=== PATIENT | male | born 1965 | race Caucasian/White ===

== ENCOUNTER → 2019-07-28 11:15 | Outpatient (CLI) | payer OTHER, SELFPAY ==
--- NOTE | 2019-07-28 14:18 | RAD_ITS ---
STUDY: X-RAY - CERVICAL SPINE REASON FOR EXAM: Male, 54 years old. CERVICALGIA, LEFT SIDE NECK PAIN W/ RADIATION TOWARD LUE. NKI TECHNIQUE: 5 view(s) of the cervical spine were obtained. COMPARISON: None FINDINGS: Normal anterior atlantoaxial articulation. Normal odontoid process. Normal cervical lordosis. There is endplate spondylosis of C3-C7. There is a 3.6 mm anterior subluxation of C4 relative to C3, and 2.8 mm anterior subluxation of C4 relative to C5. There is narrowing of the C3-4 and C5-6 disc spaces. There is multi-level osseous foraminal stenosis. The soft tissue structures are unremarkable. RAD/Cerv Spine 4 or 5 Views IMPRESSION: Cervical degenerative changes as detailed above. 3.6 mm anterior subluxation of C4 relative to C3, and 2.8 mm anterior subluxation of C4 relative to C5. This is most likely degenerative in nature. Electronically Signed: Mono Yates MD at 16:49 EST , Service support ,
--- NOTE | 2019-07-28 14:38 | NEURO ---
NCS and/or EMG Patient Report Ordering Doctor: Royer Rhodes DATE OF SERVICE: 07/28/19 Florencio Dillard is a 54-year-old male presents for electrodiagnostic testing of the left upper limb. He reports numbness and tingling as well as weakness in the left hand. Electrodiagnostic findings: Left median motor nerve demonstrates prolonged distal latency with normal amplitude and reduced conduction velocity. Prolonged left median sensory latency at the wrist. Prolonged left median palmar latency. Normal ulnar and radial sensory responses. Normal ulnar motor response, including conduction across the elbow. Normal median ulnar F wave. On needle EMG, all muscles tested in the left upper limb showed no evidence of denervation with normal motor unit action potentials. Electrodiagnostic impression: This is an abnormal study in the left upper limb. 1. Electrodiagnostic findings demonstrate left-sided median mononeuropathy. This is consistent with a mild left carpal tunnel syndrome. 2. No electrodiagnostic evidence for cervical radiculopathy. If there are any further questions, please do not hesitate contact me.
== END ==
DX: G56.02 Carpal tunnel syndrome, left upper limb (principal); M54.2 Cervicalgia
CPT/HCPCS: 72050; 95886; 95910

== ENCOUNTER → 2019-11-01 13:53 | Outpatient (CLI) | payer BC, SELFPAY ==
--- NOTE | 2019-11-01 14:08 | EKG12_ITS ---
Test Reason : PRE-OP Blood Pressure : / mmHG Vent. Rate : 072 BPM Atrial Rate : 072 BPM P-R Int : 140 ms QRS Dur : 126 ms QT Int : 392 ms P-R-T Axes : 060 023 057 degrees QTc Int : 429 ms Sinus rhythm with marked sinus arrhythmia Non-specific intra-ventricular conduction block Abnormal ECG Confirmed by SANTINO NAPOLES, TL ([id number]), graphic editor BAKARI SAEZ ([id number] on 11/04/2019 10:34:21 AM Referred By: Trent Hanley Confirmed By:TL DE MD
[2019-11-01 15:08] LABS: Mean Corp Hgb Conc 34.1 g/dL (32-36); Mean Corpuscular Hgb 32.5 pg (27.0-32.0); Mean Corpuscular Volume 95.2 fL (80-94); Platelet Count 387 K/mm3 (150-450); RBC Distribution Width CV 12.8 % (11.6-14.6); RBC Distribution Width SD 44.1 fl (35.1-43.9); Red Blood Count 4.62 M/mm3 (4.6-6.2); White Blood Count 9.8 K/mm3 (4.4-11.0)
[2019-11-01 15:59] LABS: Anion Gap 9 (5-15); BUN 11 mg/dL (7-18); BUN/Creat Ratio 13.8 RATIO (10-20); Calcium,Total 9.2 mg/dL (8.5-10.1); Chloride 93 mmol/L (98-107); EST Glomerular Filtration Rate 107 mL/min (>60); Est Glom Filt Rate - Afr Amer 129 mL/min (>60); Glucose 108 mg/dL (74-106); Potassium 3.7 mmol/L (3.5-5.1); Sodium Level 128 mmol/L (136-145)
== END ==
PROVIDERS: Referring Provider Orthopaedic Surgery; Visit Provider Orthopaedic Surgery
DX: Z01.818 Encounter for other preprocedural examination (principal); Z01.810 Encounter for preprocedural cardiovascular examination
CPT/HCPCS: 36415; 80048; 85027; 93005